=== PATIENT | female | born 2000 | race Two or more races ===

== ENCOUNTER 2021-07-14 16:14 | Emergency (ER) | payer MEDICAID, OTHER ==
[~2021-07-14] VITALS: Ht 154.9 cm; Wt 65.8 kg
[2021-07-14] MEDS ORDERED: methylPREDNISolone SOD SUCC 125 MG/2 ML VL IM ONE (21:00)
[2021-07-14] MEDS ORDERED: KETOROLAC TROMETH 60MG/2ML VIAL IM ONE (21:00)
[2021-07-14 21:30] VITALS: BP 125/83
== END 2021-07-14 21:46 | disposition home or self-care (01) ==
LOC: ER 16:14
DX: M43.16 Spondylolisthesis, lumbar region (principal); M40.56 Lordosis, unspecified, lumbar region; M54.16 Radiculopathy, lumbar region; Z88.1 Allergy status to other antibiotic agents
CPT/HCPCS: 72100; 96372; 99284; J1885; J2930